=== PATIENT | female | born 1970 | race Caucasian/White ===

== ENCOUNTER 2019-02-10 12:02 | Outpatient (REF) | payer OTHER, SELFPAY | END 2019-02-10 12:22 | LOC: LBN 12:02 | PROVIDERS: PCP Nurse Practitioner; Visit Provider Nurse Practitioner | DX: R82.90 Unspecified abnormal findings in urine (principal) | CPT/HCPCS: 87077; 87086; 87186 ==

== ENCOUNTER 2019-04-15 14:45 | Outpatient (CLI) | payer OTHER, SELFPAY ==
--- NOTE | 2019-04-15 14:15 | DI.RAD_ITS ---
SYMPTOMS/DIAGNOSIS: COUGH FOR OVER 2 MONTHS, R05 PA AND LATERAL CHEST: The heart is normal in size. The lungs are clear. The mediastinal structures and pleura appear intact. CONCLUSION: Normal chest.
== END 2019-04-15 15:05 ==
PROVIDERS: PCP Nurse Practitioner; Visit Provider Nurse Practitioner
DX: R05 Cough (principal)
CPT/HCPCS: 71046

== ENCOUNTER 2019-04-17 02:38 | Outpatient (CLI) | payer OTHER, SELFPAY ==
[2019-04-17] MEDS: Albuterol HFA 18 GM 200 PUFF INH IH (09:14)
[2019-04-17] MEDS: Inhaler, Assist Device 1 EACH MC (09:14)
--- NOTE | 2019-04-17 09:25 | PFT_ITS ---
PULMONARY FUNCTION TEST REPORT DATE OF SERVICE: April 17, 2019 REQUESTING PROVIDER: Esperanza Adorno N.P. Spirometry shows no evidence of obstructive airways disease, no bronchodilator response. Lung volumes show no evidence of restriction. Diffusion capacity normal. Airways resistance normal. IMPRESSION: Normal pulmonary function study. Clinical correlation recommended. KITTY/sai D/
== END 2019-04-17 02:58 ==
PROVIDERS: PCP Nurse Practitioner; Visit Provider Nurse Practitioner
DX: R55 Syncope and collapse (principal); Z87.891 Personal history of nicotine dependence
CPT/HCPCS: 94060; 94150; 94726; 94729

== ENCOUNTER 2020-04-22 01:14 | Outpatient (CLI) | payer BC, SELFPAY ==
[2020-04-22 08:32] LABS: HCT 39.7 % (36.0-46.0); HGB 13.5 g/dL (12.0-15.5); Mean Corpuscular Hemoglobin 29.4 pg (27.0-33.0); Mean Corpuscular Volume 86.5 fL (80-95); Mean Platelet Volume 10.5 fL (8.0-11.0); Platelet Count 256 x1000/uL (130-400); RBC 4.59 m/cumm (4.00-5.20); RBC Distribution Width 12.3 % (11.7-14.6); White Blood Cell Count 3.41 k/cumm (4.4-10.8)
[2020-04-22 09:29] LABS: ALT 34 U/L (14-59); AST 17 U/L (15-37); Albumin 4.1 g/dL (3.4-5.0); Alkaline Phosphatase 40 U/L (46-116); Anion Gap 8.8 mmol/L (3-11); BUN 10 mg/dL (7-18); Bilirubin, Total 0.5 mg/dL (0.2-1.0); CO2 27.2 mmol/L (21.0-32.0); CREATININE 0.84 mg/dL (0.55-1.02); Calcium 9.2 mg/dL (8.5-10.1); Calculated LDL 121 mg/dL (<100); Chloride 103 mmol/L (98-107); Cholesterol 181 mg/dL (<200); Glucose 86 mg/dL (74-106); HDL Cholesterol 55 mg/dL (40-60); Potassium 3.9 mmol/L (3.5-5.1); Sodium 139 mmol/L (136-145); TSH (W/Ref FT4) 1.43 uIU/mL (0.36-3.74); Total Protein 6.4 g/dL (6.4-8.2); Triglyceride 27 mg/dL (<150)
== END 2020-04-22 01:34 ==
PROVIDERS: PCP Nurse Practitioner; Visit Provider Nurse Practitioner
DX: I10 Essential (primary) hypertension (principal); F41.9 Anxiety disorder, unspecified; G47.00 Insomnia, unspecified
CPT/HCPCS: 36415; 80053; 80061; 85027; 84443

== ENCOUNTER 2020-09-09 02:02 | Outpatient (CLI) | payer BC, SELFPAY ==
[2020-09-12 21:04] LABS: Patient Race White; SARS-CoV-2 RNA Undetected (Undetected); SARS-CoV-2 Specimen Source Nasal
== END 2020-09-09 02:22 ==
PROVIDERS: PCP Nurse Practitioner; Visit Provider Nurse Practitioner
DX: Z11.59 Encounter for screening for other viral diseases (principal)
CPT/HCPCS: U0003

== ENCOUNTER 2020-10-20 17:35 | Outpatient (REF) | payer BC, SELFPAY | END 2020-10-20 17:55 | LOC: LBN 17:35 | PROVIDERS: PCP Nurse Practitioner; Visit Provider Nurse Practitioner Family | DX: N39.0 Urinary tract infection, site not specified (principal) | CPT/HCPCS: 87077; 87086; 87186 ==

== ENCOUNTER 2020-10-25 21:01 | Outpatient (REF) | payer BC, SELFPAY ==
[2020-10-25 22:13] LABS: Bilirubin Negative (Negative); Blood Negative (Negative); Clarity Clear (Clear); Glucose Negative (Negative); Ketones Trace mg/dL (Negative); Leukocyte Esterase Negative (Negative); Nitrite Negative (Negative); Specific Gravity 1.015 (1.005-1.025); Urobilinogen 0.2 EU/dL (Up TO 0.2)
== END 2020-10-25 21:21 ==
LOC: LBN 21:01
PROVIDERS: PCP Nurse Practitioner; Visit Provider Nurse Practitioner Family
DX: N39.0 Urinary tract infection, site not specified (principal)
CPT/HCPCS: 81003; 87086

== ENCOUNTER 2021-02-23 03:29 | Outpatient (CLI) | payer BC, SELFPAY ==
[2021-02-23 09:25] LABS: HCT 43.9 % (36.0-46.0); HGB 14.3 g/dL (11.2-15.7); MCHC 32.6 % (32.0-36.0); MCV 92.2 fL (80-95); MPV 9.4 fL (8.0-11.0); Platelet Count 307 10^3/uL (130-400); RBC 4.76 10^6/uL (3.93-5.22); RDW 11.9 % (11.7-14.6); RDW-SD 40.2 fL
[2021-02-23 11:54] LABS: ALT 23 U/L (14-59); AST 17 U/L (15-37); Albumin 4.3 g/dL (3.4-5.0); Alkaline Phosphatase 60 U/L (46-116); Anion Gap 6.4 mmol/L (3-11); BUN 21 mg/dL (7-18); Bilirubin, Total 0.2 mg/dL (0.2-1.0); CO2 28.6 mmol/L (21.0-32.0); CREATININE 0.8 mg/dL (0.55-1.02); Calcium 9.1 mg/dL (8.5-10.1); Calculated LDL 113 mg/dL (<100); Chloride 101 mmol/L (98-107); Cholesterol 231 mg/dL (<200); Glucose 99 mg/dL (74-106); HDL Cholesterol 103 mg/dL (40-60); Potassium 4.6 mmol/L (3.5-5.1); Sodium 136 mmol/L (136-145); Total Protein 7.4 g/dL (6.4-8.2); Triglyceride 78 mg/dL (<150)
[2021-02-24 12:12] LABS: Hepatitis C Ab w Rflx HCV PCR Negative (Negative)
== END 2021-02-23 03:30 | disposition home or self-care (01) ==
LOC: LBO 03:29
PROVIDERS: PCP Nurse Practitioner; Visit Provider Nurse Practitioner
DX: F41.1 Generalized anxiety disorder (principal); F10.20 Alcohol dependence, uncomplicated; G47.9 Sleep disorder, unspecified; Z13.220 Encounter for screening for lipoid disorders; Z11.59 Encounter for screening for other viral diseases
CPT/HCPCS: 36415; 80053; 80061; 85027; 86803

== ENCOUNTER 2021-04-17 10:09 | Outpatient (CLI) | payer BC, SELFPAY ==
[2021-04-17 20:26] LABS: COVID-19 RT-PCR UVMMC Result Negative (Negative)
== END 2021-04-17 10:10 | disposition home or self-care (01) ==
PROVIDERS: PCP Nurse Practitioner; Visit Provider Nurse Practitioner
DX: Z20.822 Contact with and (suspected) exposure to COVID-19 (principal)
CPT/HCPCS: U0003

== ENCOUNTER 2021-06-27 19:33 | Outpatient (REF) | payer BC, SELFPAY | END 2021-06-27 19:34 | disposition home or self-care (01) | LOC: LBN 19:33 | PROVIDERS: PCP Nurse Practitioner; Visit Provider Physician Assistant | DX: N39.0 Urinary tract infection, site not specified (principal) | CPT/HCPCS: 87077; 87086; 87186 ==

== ENCOUNTER 2022-06-11 18:39 | Emergency (ER) | payer BC, SELFPAY ==
[2022-06-11 18:51] VITALS: BP 184/98; PULSE 76; RESP 18; TEMP 37.1; O2SAT 98
--- NOTE | 2022-06-11 19:30 | DI.CT_ITS ---
Exam(s) CT ABDOMEN PELVIS WO EXAM: CT ABDOMEN PELVIS WO INDICATION: n/v abdomen pain. COMPARISON: No exams were available for comparison TECHNIQUE: FINDINGS: CT examination of the abdomen and pelvis was performed without contrast administration. Images obtained through the lung bases are unremarkable. The liver is unremarkable in appearance. Gallbladder and bile ducts are CT normal. Pancreas appears normal. Spleen is unremarkable in appearance. Adrenals appear normal. The kidneys are unremarkable with no evidence of hydronephrosis, nephrolithiasis, or renal mass.. Ur inary bladder unremarkable. Abdominal aorta is of normal diameter and no major vascular abnormality is seen. No abdominal wall hernia. No abdominal or pelvic adenopathy. HAIR BOILER structures appear intact. Appendix is normal. Note is made of colonic wall thickening and pericolonic fat edema sparing the re ctosigmoid, findings are suggestive colitis. There is mild prominence of lymph nodes in the mesocolo n. No evidence of obstruction. No evidence of perforation period IMPRESSION: The appearance is suggestive of colitis involving the predominance of the colon but sparing the recto sigmoid.. RADIATION DOSE DELIVERED: 619.6mGy.cm Total DLP 619.6mGy.cm Total DLP !Error CTDIvol RADIATION OPTIMIZATION: All CT scans at this facility use at least one of these dose optimization te chniques: automated exposure control; mA and/or kV adjustment per patient size (includes targeted exa ms where dose is matched to clinical indication); or iterative reconstruction.
--- NOTE | 2022-06-11 19:31 | W.ED.GENAD ---
Discharge Plan Disposition Patient Disposition: HOME Condition: Stable Discharge Details Clinical Impression: Colitis Primary Care Provider: Esperanza Adorno ED Provider: Leland Ruiz Home Meds and New Rx's Prescriptions: New amoxicillin-pot clavulanate 875-125 mg tablet 1 tab PO BID Qty: 14 0RF prednisone 20 mg tablet 60 mg PO DAILY 4 Days Qty: 12 0RF Continued buspirone 10 mg tablet 10 mg PO BID Qty: 60 2RF norethindrone acetate 5 mg tablet 2.5 mg PO DAILY Label Comments: 07/31/18 B/Obst[facility] Gyn in [facility] prescribes. bupropion HCl [Wellbutrin XL] 300 mg tablet extended release 24 hr 300 mg PO QAM Qty: 90 3RF albuterol sulfate 90 mcg/actuation HFA aerosol inhaler 2 puff IH Q4H PRN (Reason: shortness of breath or wheezing) Qty: 18 2RF hydrochlorothiazide 25 mg tablet 25 mg PO DAILY Qty: 90 3RF valsartan 160 mg tablet 160 mg PO DAILY Qty: 90 1RF ascorbic acid (vitamin C) [Vitamin C] 1,000 MG tablet 1,000 mg PO DAILY cholecalciferol (vitamin D3) [Vitamin D3] 1,000 UNIT capsule 1,000 unit PO DAILY Discharge Instructions Instructions: Colitis (ED) Additional Instructions: you cat scan showed inflammation of your colon which is causing your symptoms follow up with your primary care provider within a week especially if symptoms continue if you feel more ill, have severe worsening pain or persistent vomit return to the emergency department Medical Decision Making 52 yo female who denies chronic medical problems other than htn, comes in with cc of n/v and diarrhea since saturday. She states she had some turkey sausage that tasted off saturday morning and later that day started with diarrhea then n/v. Her diarrhea has started to become slightly more solid but still has n/v and epigastric pain when she vomits. She denies travel, fevers, chest pain, dyspnea. She has a soft abodmen that is nondistended, has llq and epigastric tenderness on exam no guarding or rebound. Suspect this could be food related vs viral gastroenteritis but will evaluate for pancreatitis and hepatitis with cmp, lipase and ct to evaluate for possible diverticulitis vs sbo labs unremarkable, ct confirms colitis. She states pain improved but still nausea despite zofran and compazine, will try ativan and po challenge with augmentin. Will also trial steroids for the inflammation seen on CT pt requesting d/c, tolerating po and wants to take antibiotic at home. Advised to f/u with pcp and return preacutions given Differential Diagnosis Differential Diagnosis: food illness, gastroenteritis, pancreatitis, sbo, diverticulitis Imaging Data Radiologic Study: Attestation: I personally reviewed and interpreted this imaging study as follows: Imaging: CT Scan Radiologist's impression: IMPRESSION: Moderate wall thickening of the ascending, transverse, and descending colon, with adjacent associated inflammatory stranding, most compatible with infectious/inflammatory colitis. Lab Data Lab results reviewed: Yes I reviewed the patient's lab results. HPI General Mode of arrival: ambulatory. Date/Time Provider Initiated Documentation: 06/11/22 19:24. Limitations to Documentation: no limitations. Information obtained by: patient. History of Present Illness 52 year old F presents to the emergency department with the chief complaint of n/v, described as moderate, Patient started experiencing this day(s) (2) and it has been intermittent. No relieving factors improve symptom(s), No exacerbating factors reported . Patient notes other (diarrhea, abdomen pain). Related Data Home Medications Medication Instructions Recorded Confirmed ascorbic acid (vitamin C) 1,000 mg 1,000 mg PO DAILY 05/04/18 06/11/22 tablet (Vitamin C) cholecalciferol (vitamin D3) 25 1,000 unit PO DAILY 05/04/18 06/11/22 mcg (1,000 unit) capsule (Vitamin D3) norethindrone acetate 5 mg tablet 2.5 mg PO DAILY 07/31/18 06/11/22 bupropion HCl 300 mg 24 hr tablet, 300 mg PO QAM #90 tabs 07/24/21 06/11/22 extended release (Wellbutrin XL) hydrochlorothiazide 25 mg tablet 25 mg PO DAILY #90 tabs 08/08/21 06/11/22 buspirone 10 mg tablet 10 mg PO BID #60 tabs 08/24/21 06/11/22 albuterol sulfate 90 mcg/actuation 2 puff inhalation Q4H PRN 11/08/21 11/08/21 aerosol inhaler shortness of breath or wheezing #18 grams valsartan 160 mg tablet 160 mg PO DAILY #90 tabs 04/13/22 08/22/22 amoxicillin 875 mg-potassium 1 tab PO BID #14 tabs 06/11/22 clavulanate 125 mg tablet prednisone 20 mg tablet 60 mg PO DAILY 4 days #12 tabs 06/11/22 Previous Rx's Medication Instructions Recorded bupropion HCl 300 mg 24 hr tablet, 300 mg PO QAM #90 tabs 07/24/21 extended release (Wellbutrin XL) hydrochlorothiazide 25 mg tablet 25 mg PO DAILY #90 tabs 08/08/21 buspirone 10 mg tablet 10 mg PO BID #60 tabs 08/24/21 albuterol sulfate 90 mcg/actuation 2 puff inhalation Q4H PRN 11/08/21 aerosol inhaler shortness of breath or wheezing #18 grams valsartan 160 mg tablet 160 mg PO DAILY #90 tabs 01/31/22 amoxicillin 875 mg-potassium 1 tab PO BID #14 tabs 06/11/22 clavulanate 125 mg tablet prednisone 20 mg tablet 60 mg PO DAILY 4 days #12 tabs 06/11/22 Allergies Allergy/AdvReac Type Severity Reaction Status Date / Time Iodinated Contrast Media Allergy Severe Vomiting--s Verified 06/11/22 18:57 [Iodinated Contrast- Oral evere and IV Dye] Sulfa (Sulfonamide Allergy Intermediate facial Verified 06/11/22 18:57 Antibiotics) swelling valacyclovir [From Valtrex] Allergy Mild rash Verified 06/11/22 18:57 levofloxacin [From Levaquin] AdvReac Intermediate IV Verified 06/11/22 18:57 med-vein streaking--oral med OK oxycodone AdvReac Intermediate hallucinati Verified 06/11/22 18:57 ons imipramine AdvReac Mild Dizziness/L Verified 06/11/22 18:57 ightheade General Stated Complaint: Nausea/Vomit/Diar AMELIA: 3 Review of Systems All systems reviewed & are unremarkable except as noted in HPI and below Constitutional Constitutional: Denies chills, Denies fever(s) and Denies weakness Cardiovascular Cardiovascular: Denies chest pain and Denies dyspnea Respiratory Respiratory: Denies cough and Denies dyspnea Genitourinary Genitourinary: Denies dysuria Integumentary/Breasts Skin/Breast: Denies rash Neurologic Neurologic: Denies weakness PFSH All Active Problems (Updated 06/11/22 @ 22:02 by Leland Ruiz MD) Colitis (Acute) SARS-CoV-2 positive (Acute ~09/25/21) Right wrist tendonitis (Acute) Carpal tunnel syndrome of right wrist (Acute) TREVOR on CPAP (Chronic 04/12/21) Screening for cholesterol level (Acute) Numbness and tingling in both hands (Acute) Bilateral hand pain (Acute) Daytime somnolence (Acute) Snoring (Acute) Sleep disorder (Acute) 02/01/2021 +snoring, +daytime sleepiness, +waking with choking/gasping Generalized anxiety disorder (Acute) Alcohol use disorder, moderate, dependence (Acute) 02/01/2021 working on cutting down, wants to stop, no history of withdrawal seizures Allergy to multiple antibiotics (Acute) Screening for viral disease (Acute) Travel within last 14 days (Acute) Abnormal blood chemistry (Acute) Insomnia (Acute) Cough (Acute) Depressive disorder (Chronic) Endometriosis (Chronic) Essential (primary) hypertension (Acute) Medical History Alcohol use disorder, moderate, dependence 02/01/2021 working on cutting down, wants to stop, no history of withdrawal seizures Allergy to multiple antibiotics Anxiety disorder Depressive disorder Endometriosis Essential (primary) hypertension Generalized anxiety disorder Insomnia Shingles (herpes zoster) polyneuropathy Sleep disorder 02/01/2021 +snoring, +daytime sleepiness, +waking with choking/gasping Surgical History Tonsillectomy planned Family History Maternal Grandmother Thyroid disease Paternal Grandmother Heart disease Hyperlipidemia Father Hypertension Stroke Maternal Grandfather Lung cancer Mother Chronic mental illness Macular degeneration Paternal Aunt Breast cancer Ovarian cancer Social History Smoking/Tobacco Use Status: Current every day Smoking risk assessment performed?: Yes Alcohol Intake: current Alcohol Intake frequency: 3 or more drinks per day Details: 6-7 drinks/week. 1-2 servings. Substance use type: does not use Adopted: No Caregiver/Support person: No Household members: family Housing: house Communication Needs: Corrective Lenses Do you need help understanding health information?: Rarely Pets and animals: Yes What is your relationship status?: Panel score (0-1 are the most socially isolated patients): 1 What type of physical activity do you participate in: none, aerobic and other Details: treadmill Duration: 30-45 minutes/day Seatbelt use: always Water heater temp set <120 deg: Yes Working smoke detector in home: Yes Fire extinguisher in home: Yes Carbon monox detector in home: Yes Firearms in home: Yes Firearms unloaded and locked: Yes Do you feel safe at home: Yes Do you feel safe in your relationship?: Yes Exam Const General: no acute distress Orientation: alert HENMT Head: normal to inspection Ears: external ears normal General nose exam: external nose normal Mouth: moist mucous membranes Eyes General: appearance normal, both eyes and all related structures Neck Neck: normal visual inspection Resp Effort & Inspection: normal respiratory effort and able to speak in complete sentences Cardio Rate: regular rate GI Palpation: soft and tender Skin General skin exam: no rashes or lesions noted Neuro General: patient alert and patient oriented x3 Extrem General: normal to inspection Psych Mental Status: mental status grossly normal Course Vital Signs Vital signs: Vital Signs Temperature 37.1 C 06/11/22 18:51 Pulse 76 06/11/22 18:51 Respiratory Rate 18 06/11/22 18:51 Blood Pressure 184/98 H 06/11/22 18:51 Pulse Oximetry 98 06/11/22 18:51 Temperature 37.1 C 06/11/22 18:51 Temperature Source Temporal Artery Scan 06/11/22 18:51 Pulse 76 06/11/22 18:51 Respiratory Rate 18 06/11/22 18:51 Respiratory Effort Non-Labored 06/11/22 18:53 Blood Pressure 184/98 H 06/11/22 18:51 Blood Pressure Position Sitting 06/11/22 18:51 Pulse Oximetry 98 06/11/22 18:51 Oxygen Delivery Method Room Air 06/11/22 18:51 Oxygen Flow Rate 0 06/11/22 18:51 Pain Level 8 06/11/22 18:51
[2022-06-11 20:06] LABS: Abs Immature Grans 0.02 10^3/uL (0.0-0.06); Absolute Basophil Count 0.02 10^3/uL (0.0-0.2); Absolute Eosinophil Count 0.01 10^3/uL (0.0-0.7); Absolute Lymphocyte Count 0.75 10^3/uL (1.2-3.4); Absolute Monocyte Count 0.47 10^3/uL (0.1-0.8); Absolute Neutrophil Count 5.31 10^3/uL (1.2-6.7); Basophils % 0.3; Eosinophils % 0.2; Immature Grans % 0.3; Lymphocytes % 11.4; MCHC 34.1 % (32.0-36.0); MCV 91 fL (80-95); MPV 9.5 fL (8.0-11.0); Monocytes % 7.1; Neutrophils % 80.7; Platelet Count 293 10^3/uL (130-400); RBC 4.51 10^6/uL (3.93-5.22); RDW-SD 40.3 fL; WBC 6.58 10^3/uL (4.4-10.8)
[2022-06-11 20:22] LABS: ALT 23 U/L (14-59); AST 16 U/L (15-37); Albumin 3.5 g/dL (3.4-5.0); Alkaline Phosphatase 43 U/L (46-116); BUN 8 mg/dL (7-18); Bilirubin, Direct 0.1 mg/dL (0.0-0.2); Bilirubin, Total 0.2 mg/dL (0.2-1.0); CREATININE 0.6 mg/dL (0.55-1.02); Calcium 9.7 mg/dL (8.5-10.1); Chloride 97 mmol/L (98-107); Glucose 120 mg/dL (74-106); Lipase 80 U/L (73-393); Magnesium 1.8 mg/dL (1.8-2.4); Potassium 3.2 mmol/L (3.5-5.1); Sodium 136 mmol/L (136-145); Total Protein 7.6 g/dL (6.4-8.2)
[2022-06-11] MEDS: Ketorolac 15 MG/ML VIAL IVP (20:28)
[2022-06-11] MEDS: Ondansetron 4 MG/2 ML VIAL IVP (20:28)
[2022-06-11] MEDS: Normal Saline 1,000 ML 1000 ML IV ×2 (20:28→21:05)
[2022-06-11] MEDS: Prochlorperazine 10 MG/2 ML VIAL IVP (21:00)
--- NOTE | 2022-06-11 21:04 | DI.VRAD_ITS ---
PROCEDURE INFORMATION: Exam: CT Abdomen And Pelvis Without Contrast Exam date and time: 06/11/2022 8:43 PM Age: 52 years old Clinical indication: Nausea; Prior surgery; Surgery date: 6+ months; Surgery type: , endometrioses; Additional info: N/v TECHNIQUE: Imaging protocol: Computed tomography of the abdomen and pelvis without contrast. Radiation optimization: All CT scans at this facility use at least one of these dose optimization techniques: automated exposure control; mA and/or kV adjustment per patient size (includes targeted exams where dose is matched to clinical indication); or iterative reconstruction. COMPARISON: CR XR CHEST 2V PA LATERAL 04/15/2019 2:16 PM FINDINGS: Liver: Normal. Gallbladder and bile ducts: Normal Pancreas: Normal. Spleen: Normal. Adrenal glands: Normal. No mass. Kidneys and ureters: Normal. Stomach and bowel: Moderate wall thickening of the ascending, transverse, and descending colon, with adjacent associated inflammatory stranding, most compatible with infectious/inflammatory colitis. Appendix: No evidence of appendicitis. Intraperitoneal space: Small amount of pelvic free fluid. Vasculature: Phleboliths within the pelvis. Lymph nodes: Unremarkable. No enlarged lymph nodes. Urinary bladder: Unremarkable as visualized. Reproductive: Unremarkable as visualized. Bones/joints: No acute abnormality. Soft tissues: Normal. IMPRESSION: Moderate wall thickening of the ascending, transverse, and descending colon, with adjacent associated inflammatory stranding, most compatible with infectious/inflammatory colitis. Dictated and Authenticated by: Paresh Barlow MD. Ordering:KAROLINE Ha MD
[2022-06-11 21:50] VITALS: BP 169/93; PULSE 68; RESP 16; O2SAT 100
[2022-06-11] MEDS: methylPREDNISolone SUCC 125 MG VIAL IVP (22:15)
[2022-06-11] MEDS: Amoxicillin 875/Clav. 125 TAB PO (22:15)
[2022-06-11] MEDS: LORazepam 20 MG/10 ML VIAL IVP (22:15)
[2022-06-11 22:16] VITALS: BP 172/87; PULSE 80; RESP 16; O2SAT 100
[2022-06-11] MEDS: Ondansetron O.D.T. 4 MG TABEF, 3 TABS/BTL PO (22:31)
== END 2022-06-11 22:27 | disposition home or self-care (01) ==
PROVIDERS: Emergency Provider Emergency Medicine; PCP Nurse Practitioner
DX: K52.9 Noninfective gastroenteritis and colitis, unspecified (principal); I10 Essential (primary) hypertension; F17.200 Nicotine dependence, unspecified, uncomplicated
CPT/HCPCS: 80053; 83690; 96361; 96374; 96375; 99284; 74176; 82248; 83735; 85025; J0780; J1885; J2405; J2930; J3490

== ENCOUNTER 2022-12-11 02:08 | Outpatient (CLI) | payer BC, SELFPAY ==
[2022-12-11 09:44] LABS: Anion Gap 7.9 mmol/L (3-11); BUN 18 mg/dL (7-18); CO2 30.1 mmol/L (21.0-32.0); CREATININE 0.8 mg/dL (0.55-1.02); Calcium 9.3 mg/dL (8.5-10.1); Calculated LDL 121 mg/dL (<100); Chloride 104 mmol/L (98-107); Cholesterol 238 mg/dL (<200); Estimated GFR 89.15 (mL/min/1.73m2); Glucose 96 mg/dL (74-106); HDL Cholesterol 108 mg/dL (40-60); Potassium 4.2 mmol/L (3.5-5.1); Sodium 142 mmol/L (136-145); TSH (W/Ref FT4) 0.84 uIU/mL (0.36-3.74); Triglyceride 46 mg/dL (<150)
[2022-12-12 12:37] LABS: ANA Interpretation Negative (Negative)
== END 2022-12-11 02:09 | disposition home or self-care (01) ==
LOC: LBO 02:08
PROVIDERS: PCP Nurse Practitioner; Visit Provider Nurse Practitioner
DX: I10 Essential (primary) hypertension (principal); Z13.220 Encounter for screening for lipoid disorders; R20.9 Unspecified disturbances of skin sensation
CPT/HCPCS: 36415; 80048; 80061; 84443; 86038

== ENCOUNTER 2023-09-13 12:05 | Emergency (ER) | payer BC, SELFPAY ==
[2023-09-13 12:07] VITALS: BP 155/76; PULSE 70; RESP 15; TEMP 36.6; O2SAT 98
--- NOTE | 2023-09-13 12:52 | ED.GENADUL_ITS ---
Discharge Plan Disposition Patient Disposition: Home Discharge Details Clinical Impression: Acute pain of right shoulder, Rotator cuff impingement syndrome of right shoulder Primary Care Provider: Esperanza Adorno ED Provider: Bob Adan Home Meds and New Rx's Prescriptions: Continued valsartan 160 mg tablet 80 mg PO DAILY Qty: 90 3RF norethindrone acetate 5 mg tablet 2.5 mg PO DAILY Patient Comments: 07/31/18 [facility] in [facility] prescribes. lysine 1,000 mg tablet 1,000 mg PO DAILY Culturelle 10 billion cell capsule 1 cap PO DAILY ascorbic acid (vitamin C) 500 mg tablet,chewable 1 g PO DAILY lorazepam 0.5 mg tablet 0.5 mg PO DAILY PRN (Reason: anxiety) Qty: 15 0RF Fiber Supplement PO DAILY Patient Comments: 06/21/23 encounter hydrochlorothiazide 25 mg tablet See Rx Instructions .ROUTE .COMPLEX Qty: 90 3RF Dose Instruction: TAKE ONE TABLET BY MOUTH EVERY DAY Rx Instructions: TAKE ONE TABLET BY MOUTH EVERY DAY fluticasone propionate 50 mcg/actuation spray,suspension See Rx Instructions .ROUTE .COMPLEX Qty: 16 12RF Dose Instruction: USE 2 SPRAYS IN EACH NOSTRIL ONCE DAILY Rx Instructions: USE 2 SPRAYS IN EACH NOSTRIL ONCE DAILY escitalopram oxalate 10 mg tablet 10 mg PO DAILY Qty: 30 1RF cholecalciferol (vitamin D3) [Vitamin D3] 1,000 UNIT capsule 1,000 unit PO DAILY Discharge Instructions Instructions: Shoulder Pain (ED) Additional Instructions: Rest your shoulder and use sling over the next 1 week. be sure to remove your arm from the sling daily to perform pendulum exercises as discussed. Avoid any activities that worsen pain. Please take ibuprofen over the counter. Take 600mg by mouth every 6 hours as needed for pain. Please take acetaminophen (tylenol) - 650mg every 6 hours by mouth as needed for pain. It is safe to take both Tylenol and ibuprofen together should you need this. Please contact your primary care physician to arrange follow-up. If pain persists, additional outpatient diagnostic testing may be necessary. Return to the ER immediately for any worsening or new concerning symptoms. Referrals: Esperanza Adorno, TAD [Primary Care Provider] - Medical Decision Making [id number]??53-year-old female here with right shoulder pain worsening over the past 3 days. Patient does not recall any specific trauma. Patient does have significant pain now of the right shoulder with any active range of motion and worse with activities above 90 degrees. Suspect rotator cuff tendinitis versus bursitis. Will obtain x-ray of the shoulder. I will give ibuprofen 600 mg p.o. and apply patient in sling. 215 --x-ray of the shoulder was interpreted by radiology: Unremarkable radiographs of the right shoulder. Patient to be placed in sling to immobilize for comfort. She was advised to perform pendulum exercises daily. Patient was encouraged to continue to use NSAIDs. I will have her follow-up with her primary care physician. She understands that should pain persist she may need additional outpatient diagnos tic testing. Usual customary discharge instructions were reviewed with the patient. HPI General Mode of arrival: ambulatory . Date/Time Provider Initiated Documentation: 09/13/23 12:18 . Limitations to Documentation: no limitations . Information obtained by: patient . HPI Narrative: 53-year-old female presents with chief complaint of shoulder pain. Patient notes pain in her right shoulder that started 2 to 3 days ago and has progressively worsened. Pain is now severe and worse with any movement of the shoulder. 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 She has no associated numbness or tingling. No associated fever. No other joint pain. Related Data Home Medications Medication Instructions Recorded Confirmed cholecalciferol (vitamin D3) 25 1,000 unit PO DAILY 05/04/18 09/13/23 mcg (1,000 unit) capsule (Vitamin D3) norethindrone acetate 5 mg tablet 2.5 mg PO DAILY 07/31/18 09/13/23 valsartan 160 mg tablet 80 mg (1/2 x 160 mg) PO DAILY #90 11/28/22 09/13/23 tabs Lactobacillus rhamnosus GG 10 1 cap PO DAILY 01/01/23 09/13/23 billion cell capsule (Culturelle) ascorbic acid (vitamin C) 500 mg 1 g PO DAILY 01/01/23 09/13/23 chewable tablet lysine 1,000 mg tablet 1,000 mg PO DAILY 01/01/23 09/13/23 lorazepam 0.5 mg tablet 0.5 mg PO DAILY PRN anxiety #15 04/03/23 09/13/23 tabs Fiber Supplement PO DAILY 07/09/23 hydrochlorothiazide 25 mg tablet See Rx Instructions .Route 07/22/23 09/13/23 .COMPLEX #90 tabs fluticasone propionate 50 See Rx Instructions .Route 09/02/23 09/13/23 mcg/actuation nasal .COMPLEX #16 mL spray,suspension escitalopram oxalate 10 mg tablet 10 mg PO DAILY #30 tabs 09/05/23 09/13/23 Previous Rx's Medication Instructions Recorded valsartan 160 mg tablet 80 mg (1/2 x 160 mg) PO DAILY #90 11/28/22 tabs lorazepam 0.5 mg tablet 0.5 mg PO DAILY PRN anxiety #15 04/03/23 tabs hydrochlorothiazide 25 mg tablet See Rx Instructions .Route 07/22/23 .COMPLEX #90 tabs fluticasone propionate 50 See Rx Instructions .Route 09/02/23 mcg/actuation nasal .COMPLEX #16 mL spray,suspension escitalopram oxalate 10 mg tablet 10 mg PO DAILY #30 tabs 09/05/23 Allergies Allergy/AdvReac Type Severity Reaction Status Date / Time Iodinated Contrast Media Allergy Severe Vomiting--s Verified 09/13/23 12:12 [Iodinated Contrast- Oral evere and IV Dye] Sulfa (Sulfonamide Allergy Intermediate facial Verified 09/13/23 12:12 Antibiotics) swelling valacyclovir [From Valtrex] Allergy Mild rash Verified 09/13/23 12:12 levofloxacin [From Levaquin] AdvReac Intermediate IV Verified 09/13/23 12:12 med-vein streaking--oral med OK oxycodone AdvReac Intermediate hallucinati Verified 09/13/23 12:12 ons trazodone AdvReac Intermediate Skin Rash Verified 09/13/23 12:12 imipramine AdvReac Mild Dizziness/L Verified 09/13/23 12:12 ightheade General Stated Complaint: Orthopedic AMELIA: 4 Review of Systems All systems reviewed & are unremarkable except as noted in HPI and below Constitutional Constitutional: Denies fever(s) Musculoskeletal Musculoskeletal: Reports as per HPI PFSH All Active Problems (Updated 09/13/23 @ 14:20 by Bob Adan MD) Rotator cuff impingement syndrome of right shoulder (Acute) Acute pain of right shoulder (Acute) Chronic constipation (Acute) Raynauds phenomenon (Acute ~12/2022) 12/28/22 [facility] Carpal tunnel syndrome of right wrist (Acute) TREVOR on CPAP (Chronic 04/12/21) Borderline, so not eligible for machine+ .. Improved sleep with diet/lifestyle changes. Generalized anxiety disorder (Acute) Allergy to multiple antibiotics (Acute) Insomnia (Acute) Depressive disorder (Chronic) Endometriosis (Chronic) Essential (primary) hypertension (Acute) Medical History Numbness and tingling in both hands Bilateral hand pain Daytime somnolence Sleep disorder 02/01/2021 +snoring, +daytime sleepiness, +waking with choking/gasping Shingles (herpes zoster) polyneuropathy Anxiety disorder Surgical History H/O colonoscopy (~08/31/22) 08/31/22 Fragments of Tubular Adenoma, done at [facility] Tonsillectomy planned Family History Maternal Grandmother Thyroid disease Paternal Grandmother , of heart attack Heart disease Hyperlipidemia Father Hypertension Stroke Maternal Grandfather Lung cancer Mother Chronic mental illness Macular degeneration Paternal Aunt Breast cancer Ovarian cancer Paternal Uncle , AAA AAA (abdominal aortic aneurysm) Paternal Cousin Carotid artery disease enlarged cartoids per pt Social History Smoking/Tobacco Use Status: Former Tobacco Use Pack-years: 12 Smoking risk assessment performed?: Yes Alcohol Intake: current Alcohol Intake frequency: 0-2 drinks per day Details: 6-7 drinks/week. 1-2 servings. Substance use type: does not use Adopted: No Caregiver/Support person: No Household members: family Housing: house Communication Needs: Corrective Lenses Do you need help understanding health information?: Rarely Pets and animals: Yes What is your relationship status?: Panel score (0-1 are the most socially isolated patients): 1 What type of physical activity do you participate in: none, aerobic and other Details: treadmill Duration: 30-45 minutes/day Seatbelt use: always Water heater temp set <120 deg: Yes Working smoke detector in home: Yes Fire extinguisher in home: Yes Carbon monox detector in home: Yes Firearms in home: Yes Firearms unloaded and locked: Yes Do you feel safe at home: Yes Do you feel safe in your relationship?: Yes Exam Const General: cooperative and no acute distress HENMT Mouth: moist mucous membranes Eyes Conjunctivae: normal conjunctivae Cardio Rate: regular rate and not tachycardic Rhythm: regular rhythm Skin General skin exam: no rashes or lesions noted Neuro General: patient alert, patient awake and tone normal Extrem General: no edema Right upper extremity: shoulder/upper arm Details: tenderness, axillary nerve sensory function normal and abnormal ROM Details: pain with active ROM Details: in ABduction (above 90), in extension and in internal rotation; no swelling Course Vital Signs Vital signs: Vital Signs Temperature 36.6 C 09/13/23 12:07 Pulse 70 09/13/23 12:07 Respiratory Rate 15 09/13/23 12:07 Blood Pressure 155/76 H 09/13/23 12:07 Pulse Oximetry 98 09/13/23 12:07 Temperature 36.6 C 09/13/23 12:07 Temperature Source Temporal Artery Scan 09/13/23 12:07 Pulse 70 09/13/23 12:07 Respiratory Rate 15 09/13/23 12:07 Respiratory Effort Normal 09/13/23 12:10 Blood Pressure 155/76 H 09/13/23 12:07 Blood Pressure Position Sitting 09/13/23 12:07 Pulse Oximetry 98 09/13/23 12:07 Oxygen Delivery Method Room Air 09/13/23 12:07 Oxygen Flow Rate 0 09/13/23 12:07 Pain Level 6 09/13/23 12:11 PAWSS Have you Been Recently Intoxicated or Drunk Within the Last 30 days?: No Have you Ever Experienced Previous Episodes of Alcohol Withdrawal?: No Have you ever Experienced Withdrawal Seizures?: No Have you ever Experienced Delirium Tremens(DT)s?: No Have you ever undergone Alcohol Rehabilitation Treatment (i.e, inpt ot outpatient treatment programs)?: No Have you ever Experienced Blackouts?: No Have you ever Combined Alcohol with other Downers within the last 90 days?: No Have you ever Combined Alcohol with any other Substance of Abuse during the last 90 days?: No Result: 0
[2023-09-13] MEDS: Ibuprofen 600 MG TAB PO (13:07)
--- NOTE | 2023-09-13 13:34 | DI.RAD_ITS ---
Exam(s) XR SHOULDER RT COMPLETE 2+V EXAM: XR SHOULDER RT COMPLETE 2+V CLINICAL HISTORY: pain. TECHNIQUE: 2D digital imaging was performed of the right shoulder. Five images were obtained. AP, Grashey, Y-view and axillary views were obtained. COMPARISON: No exams were available for comparison FINDINGS: BONES: No acute fracture is present. No bony destructive lesion is seen. JOINTS: No dislocation present. The glenohumeral and acromioclavicular joints are within normal limit s. SOFT TISSUE: The visualized lungs are clear. IMPRESSION: Unremarkable radiographs of the right shoulder. DATA REPOSITORY: RADIATION DOSE DELIVERED:
== END 2023-09-13 14:32 | disposition home or self-care (01) ==
PROVIDERS: Emergency Provider Student in an Organized Health Care Education/Training Program; PCP Nurse Practitioner
DX: M75.41 Impingement syndrome of right shoulder (principal); M25.511 Pain in right shoulder
CPT/HCPCS: 99283; 73030

== ENCOUNTER 2023-10-22 13:50 | Outpatient (REF) | payer BC, SELFPAY ==
[2023-10-22 16:23] LABS: COVID-19 PCR Negative (Negative); Influenza A PCR Negative (Negative); Influenza B PCR Negative (Negative); RSV PCR Negative (Negative)
[2023-10-22 16:35] LABS: Source Nasopharynx
== END 2023-10-22 13:51 | disposition home or self-care (01) ==
LOC: LBN 13:50
PROVIDERS: PCP Nurse Practitioner; Referring Provider Nurse Practitioner; Visit Provider Nurse Practitioner
DX: R05.8 Other specified cough (principal); R06.02 Shortness of breath; R51.9 Headache, unspecified; Z20.822 Contact with and (suspected) exposure to COVID-19
CPT/HCPCS: 87637

== ENCOUNTER 2025-03-01 02:20 | Outpatient (CLI) | payer BC, SELFPAY ==
--- NOTE | 2025-03-01 07:15 | DI.DEXA_ITS ---
Exam(s) XR DEXA BONE DENSITY W/WO [place] EXAM: XR DEXA BONE DENSITY W/WO [place] CLINICAL HISTORY: depo provera; assess bone density,h/o high risk medication treatment, TECHNIQUE: COMPARISON: No exams were available for comparison FINDINGS: Lateral Spine Image: Unremarkable. No compression deformities identified. Left hip: Total T-Score: -0.9 Total Z-Score: -0.2 T- and Z-scores: There is no evidence of osteoporosis. Lumbar Spine: Total T-Score: -1.1 Total Z-Score: -0.1 T- and Z-scores: Findings are consistent with osteopenia. IMPRESSION: No evidence of osteoporosis.
== END 2025-03-01 02:40 ==
LOC: DI 02:20
PROVIDERS: PCP Nurse Practitioner Adult Health; Visit Provider Nurse Practitioner Adult Health
DX: Z92.29 Personal history of other drug therapy (principal); Z78.0 Asymptomatic menopausal state; Z13.820 Encounter for screening for osteoporosis
CPT/HCPCS: 77080

== ENCOUNTER 2025-03-19 00:54 | Outpatient (CLI) | payer BC, SELFPAY ==
[2025-03-19 09:26] LABS: ALT 50 U/L (14-59); AST 35 U/L (15-37); Albumin 4.4 g/dL (3.4-5.0); Alkaline Phosphatase 53 U/L (46-116); Anion Gap 9.8 mmol/L (3-11); BUN 10 mg/dL (7-18); Bilirubin, Total 0.6 mg/dL (0.2-1.0); CO2 30.2 mmol/L (21.0-32.0); CREATININE 0.7 mg/dL (0.55-1.02); Chloride 98 mmol/L (98-107); Estimated GFR 102.71 (mL/min/1.73m2); Glucose 98 mg/dL (74-106); Potassium 3.4 mmol/L (3.5-5.1); Sodium 138 mmol/L (136-145); Total Protein 7.9 g/dL (6.4-8.2)
[2025-03-24 15:17] LABS: Apolipoprotein B, Serum 87 mg/dL (48-124); Beta VLDL Cholesterol Not Detected mg/dL (<15); Beta VLDL Triglycerides Not Detected mg/dL (<15); Cholesterol, Total, CDC 178 mg/dL; Chylomicron Cholesterol Not Detected; Chylomicron Triglycerides Not Detected; HDL Cholesterol, CDC 59 mg/dL (>=50); LDL Cholesterol 98 mg/dL; LDL Triglycerides 27 mg/dL (<=50); Lp(a) Cholesterol 16 mg/dL (<5); LpX Not detected; Triglycerides, CDC 51 mg/dL; VLDL Cholesterol 5 mg/dL (<30); VLDL Triglycerides 11 mg/dL (<120)
== END 2025-03-19 00:55 | disposition home or self-care (01) ==
LOC: LBO 00:55
PROVIDERS: PCP Nurse Practitioner Adult Health; Referring Provider Nurse Practitioner Adult Health; Visit Provider Nurse Practitioner Adult Health
DX: Z82.49 Family history of ischemic heart disease and other diseases of the circulatory system (principal); Z82.3 Family history of stroke
CPT/HCPCS: 36415; 80053; 80061; 82172; 82664